=== PATIENT | female | born 1980 | race African-American/Black ===

== ENCOUNTER 2019-11-24 17:03 | Emergency (ER) | payer OTHER ==
[~2019-11-24] VITALS: Ht 167.6 cm; Wt 83.9 kg
[2019-11-24 17:08] VITALS: BP 161/83
--- NOTE | 2019-11-24 17:18 | NUR ---
ED Nurse Note: Patient from home and walked in due to heavy menstrual period x 1 week. Pt states that she missed her period last month. Pt cabrera sto use 6 pads per day but denies dizziness and any pain. AAO x4, ambulates with steady gait.
--- NOTE | 2019-11-24 17:34 | NUR ---
ED Nurse Note: Collected blood and urine then sent.
--- NOTE | 2019-11-24 17:43 | NUR ---
ED Nurse Note: Pt taken to US in stable condition.
--- NOTE | 2019-11-24 17:47 | Emergency Room Report ---
History of Present Illness General Chief Complaint: Female Urogenital Problems Source: Patient Present Illness HPI Disclaimer: Please note that this report is being documented using DRAGON technology. This can lead to erroneous entry secondary to incorrect interpretation by the dictating instrument. HPI: 46-year old female no reported past medical history presented for vaginal bleeding. For the past 2 weeks she has had vaginal bleeding with clots. She denies any pain. Last menstrual cycle was 2 months ago. She states she missed last month cycle. She denies any history of dysfunctional uterine bleeding. Denies any lightheadedness or dizziness. She is sexually active. She currently does not have any children. 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 Patient History Last Menstrual Period: 11/09 Now: No : 0 Para: 0 Reviewed Nursing Documentation: PMH: Agreed; PSxH: Agreed Nursing Documentation-PMH Past Medical History: No Stated History Review of Systems All Other Systems: negative except mentioned in HPI Physical Exam Vital Signs Date Time Temp Pulse Resp B/P (MAP) Pulse Ox O2 Delivery O2 Flow Rate FiO2 11/24/19 17:08 98.1 70 20 161/83 96 Room Air Sp02 EP Interpretation: reviewed, normal General Appearance: well appearing, no apparent distress Head: normocephalic, atraumatic Eyes: bilateral eye PERRL, bilateral eye EOMI ENT: hearing grossly normal, moist mucus membranes Neck: full range of motion, supple Respiratory: lungs clear, normal breath sounds, no rhonchi, no respiratory distress, no retraction, no wheezing Cardiovascular #1: normal peripheral pulses, regular rate, rhythm, no murmur Gastrointestinal: non tender, soft, non-distended, no guarding Neurologic: alert, oriented x3, no focal defects Skin: normal color, warm/dry Medical Decision Making Diagnostic Impression: Primary Impression: Uterine fibroid Additional Impressions: Uterine bleeding, dysfunctional Ovarian cyst ER Course MDM: Differential includes but not limited to differential functional uterine bleeding, spontaneous miscarriage, uterine fibroids, ectopic to name a few Clinical course-basic laboratory studies were sent ultrasound ordered urine test ordered. was negative. Hemoglobin stable. Ultrasound and CT ordered CT showed evidence of large uterine fibroid and a ovarian cyst. Ultrasound also demonstrated the same. She had no pain. She was not dizzy. 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 She was instructed to return for any worsening symptoms. Labs - Laboratory Tests Test 11/24/19 17:28 White Blood Count 9.2 K/UL (4.8-10.8) Red Blood Count 4.24 M/UL (4.20-5.40) Hemoglobin 12.5 G/DL (12.0-16.0) Hematocrit 38.5 % (37.0-47.0) Mean Corpuscular Volume 91 FL (80-99) Mean Corpuscular Hemoglobin 29.5 PG (27.0-31.0) Mean Corpuscular Hemoglobin Concent 32.5 G/DL (32.0-36.0) Red Cell Distribution Width 14.1 % (11.6-14.8) Platelet Count 324 K/UL (150-450) Mean Platelet Volume 8.1 FL (6.5-10.1) Neutrophils (%) (Auto) 66.8 % (45.0-75.0) Lymphocytes (%) (Auto) 22.1 % (20.0-45.0) Monocytes (%) (Auto) 6.7 % (1.0-10.0) Eosinophils (%) (Auto) 1.8 % (0.0-3.0) Basophils (%) (Auto) 2.6 % (0.0-2.0) H Urine Color Pale yellow Urine Appearance Cloudy Urine pH 6 (4.5-8.0) Urine Specific [place] 1.025 (1.005-1.035) Urine Protein 2+ (NEGATIVE) H Urine Glucose (UA) Negative (NEGATIVE) Urine Ketones Negative (NEGATIVE) Urine Blood 5+ (NEGATIVE) H Urine Nitrite Negative (NEGATIVE) Urine Bilirubin Negative (NEGATIVE) Urine Urobilinogen Normal MG/DL (0.0-1.0) Urine Leukocyte Esterase Negative (NEGATIVE) Urine RBC Tntc /HPF (0 - 2) H Urine WBC 0-2 /HPF (0 - 2) Urine Squamous Epithelial Cells Moderate /LPF (NONE/OCC) H Urine Bacteria Few /HPF (NONE) Urine HCG, Qualitative Negative (NEGATIVE) Sodium Level 140 MMOL/L (136-145) Potassium Level 4.0 MMOL/L (3.5-5.1) Chloride Level 105 MMOL/L (98-107) Carbon Dioxide Level 26 MMOL/L (21-32) Anion Gap 9 mmol/L (5-15) Blood Urea Nitrogen 14 mg/dL (7-18) Creatinine 1.2 MG/DL (0.55-1.30) Estimated Glomerular Filtration Rate > 60 mL/min (>60) Glucose Level 90 MG/DL (74-106) Calcium Level 8.9 MG/DL (8.5-10.1) Total Bilirubin 0.3 MG/DL (0.2-1.0) Aspartate Amino Transferase (AST) 22 U/L (15-37) Alanine Aminotransferase (ALT) 18 U/L (12-78) Alkaline Phosphatase 55 U/L (46-116) Total Protein 6.9 G/DL (6.4-8.2) Albumin 4.2 G/DL (3.4-5.0) Globulin 2.7 g/dL Albumin/Globulin Ratio 1.6 (1.0-2.7) On reevaluation: Patient remained in no acute distress Plan-start home, follow-up PMD, given return precautions. CT/MRI/US Diagnostic Results CT/MRI/US Diagnostic Results #1: Imaging Test Ordered: CT abdomen and pelvis Impression IMPRESSION: 1. Study substantially limited due to lack of IV contrast. 2. Left adnexal 5.2 cm probable ovarian cyst which may be hemorrhagic, not well evaluated on this study. 3. Recommend pelvic ultrasound to further characterize left adnexal structure. 4. Enlarged fibroid uterus. 5. Otherwise no acute abnormality definitively identified to account for patient presentation. 6. If there is continued clinical concern, consider repeating study with IV contrast. CT/MRI/US Diagnostic Results #2: Imaging Test Ordered: Pelvic ultrasound Impression IMPRESSION: 1. Nonvisualized right ovary. 2. No acute abnormality definitively identified to account for patient presentation. 3. Recommend follow-up pelvic ultrasound in 8-12 weeks for left ovarian probably hemorrhagic cyst. 4. Fibroid and enlarged uterus. 5. Otherwise unremarkable study. Last Vital Signs Date Time Temp Pulse Resp B/P (MAP) Pulse Ox O2 Delivery O2 Flow Rate FiO2 11/24/19 17:08 98.1 70 20 161/83 (109) 96 Room Air Status: improved Disposition: HOME, SELF-CARE Mcrae,John.D. Nov 24, 2019 17:47
[2019-11-24 18:03] LABS: BASOPHILS % (AUTO) 2.6 % (0.0-2.0); EOSINOPHILS % (AUTO) 1.8 % (0.0-3.0); HEMATOCRIT 38.5 % (37.0-47.0); HEMOGLOBIN 12.5 G/DL (12.0-16.0); LYMPHOCYTES % (AUTO) 22.1 % (20.0-45.0); MEAN CORPUSCULAR VOLUME 91 FL (80-99); MONOCYTES % (AUTO) 6.7 % (1.0-10.0); NEUTROPHILS % (AUTO) 66.8 % (45.0-75.0); PLATELET COUNT 324 K/UL (150-450); RED BLOOD COUNT 4.24 M/UL (4.20-5.40); RED CELL DISTRIBUTION WIDTH 14.1 % (11.6-14.8); WHITE BLOOD COUNT 9.2 K/UL (4.8-10.8)
[2019-11-24 18:05] LABS: APPEARANCE,URINE CLOUDY; BILIRUBIN, URINE NEGATIVE (NEGATIVE); COLOR,URINE PALE YELLOW; GLUCOSE, URINE (UA) NEGATIVE (NEGATIVE); KETONES,URINE NEGATIVE (NEGATIVE); LEUKOCYTE ESTERASE ,URINE NEGATIVE (NEGATIVE); NITRITE,URINE NEGATIVE (NEGATIVE); PH,URINE 6 (4.5-8.0); PROTEIN,URINE 2+ (NEGATIVE); UROBILINOGEN,URINE NORMAL MG/DL (0.0-1.0)
[2019-11-24 18:13] LABS: ANION GAP 9 mmol/L (5-15); BLOOD UREA NITROGEN 14 mg/dL (7-18); CALCIUM 8.9 MG/DL (8.5-10.1); CARBON DIOXIDE 26 MMOL/L (21-32); CHLORIDE 105 MMOL/L (98-107); CREATININE 1.2 MG/DL (0.55-1.30); SODIUM 140 MMOL/L (136-145)
[2019-11-24 18:18] LABS: ALANINE AMINOTRANSFERASE 18 U/L (12-78); ALBUMIN 4.2 G/DL (3.4-5.0); ALBUMIN/GLOBULIN RATIO 1.6 (1.0-2.7); ALKALINE PHOSPHATASE 55 U/L (46-116); ASPARTATE AMINO TRANSFERASE 22 U/L (15-37); BILIRUBIN,TOTAL 0.3 MG/DL (0.2-1.0)
--- NOTE | 2019-11-24 19:12 | NUR ---
HAND-OFF: Report given to Khushi COLE.
--- NOTE | 2019-11-24 19:15 | NUR ---
ED Nurse Note: Report received from DOUGLAS Johns. Pt is having US done at this time.
--- NOTE | 2019-11-24 19:37 | Diagnostic Imaging Report ---
EXAM: CT Abdomen and Pelvis Without Intravenous Contrast CLINICAL HISTORY: PAIN TECHNIQUE: Axial computed tomography images of the abdomen and pelvis without intravenous contrast. CTDI is 9.9 mGy and DLP is 525.9 mGy-cm. One or more of the following dose reduction techniques were used: automated exposure control, adjustment of the mA and/or kV according to patient size, use of iterative reconstruction technique. Coronal and sagittal reformatted images were created and reviewed. COMPARISON: No relevant prior studies available. FINDINGS: Limitations: Study substantially limited due to lack of IV contrast. Lung bases: Unremarkable. No mass. No consolidation. ABDOMEN: Liver: Unremarkable. Gallbladder and bile ducts: Unremarkable. No calcified stones. No ductal dilation. Pancreas: Unremarkable. No ductal dilation. Spleen: Unremarkable. No splenomegaly. Adrenals: Unremarkable. No mass. Kidneys and ureters: Unremarkable. No obstructing stones. No hydronephrosis. Stomach and bowel: Unremarkable. No obstruction. No mucosal thickening. PELVIS: Appendix: No findings to suggest acute appendicitis. Bladder: Unremarkable. No stones. Reproductive: Left adnexal 5.2 cm probable ovarian cyst which may be hemorrhagic, not well evaluated on this study. Enlarged fibroid uterus. ABDOMEN and PELVIS: Intraperitoneal space: Unremarkable. No free air. No significant fluid collection. Bones/joints: No acute fracture. No dislocation. Soft tissues: Unremarkable. Vasculature: Unremarkable. No abdominal aortic aneurysm. Lymph nodes: Unremarkable. No enlarged lymph nodes. IMPRESSION: 1. Study substantially limited due to lack of IV contrast. 2. Left adnexal 5.2 cm probable ovarian cyst which may be hemorrhagic, not well evaluated on this study. 3. Recommend pelvic ultrasound to further characterize left adnexal structure. 4. Enlarged fibroid uterus. 5. Otherwise no acute abnormality definitively identified to account for patient presentation. 6. If there is continued clinical concern, consider repeating study with IV contrast.
[2019-11-24 20:30] VITALS: BP 145/80
--- NOTE | 2019-11-24 20:30 | NUR ---
ER DISCHARGE NOTE: Patient is cleared to be discharged per ERMD, pt is aox4, on room air, with stable vital signs. pt was given dc and prescription instructions, pt was able to verbalize understanding, pt id band and iv site removed without complications. pt is able to ambulate with steady gait. pt took all belongings.
--- NOTE | 2019-11-24 20:48 | Diagnostic Imaging Report ---
EXAM: US Pelvis Transabdominal, Complete CLINICAL HISTORY: ABD PAIN TECHNIQUE: Real-time complete transabdominal pelvic ultrasound with image documentation. COMPARISON: Same-day CT abdomen and pelvis FINDINGS: Uterus/cervix: Uterine enlargement 14 x 8 x 6 cm with numerous fibroids. Endometrium 0.9 cm Right ovary: Nonvisualized right ovary. Left ovary: Left ovarian likely hemorrhagic cysts, left ovary measures 6.5 x 5.5 x 5 cm. Normal blood flow. Free fluid: No free fluid. Bladder: Unremarkable as visualized. Wall is normal thickness for degree of distention. IMPRESSION: 1. Nonvisualized right ovary. 2. No acute abnormality definitively identified to account for patient presentation. 3. Recommend follow-up pelvic ultrasound in 8-12 weeks for left ovarian probably hemorrhagic cyst. 4. Fibroid and enlarged uterus. 5. Otherwise unremarkable study.
== END 2019-11-24 20:30 | disposition home or self-care (01) ==
LOC: EMR 17:30
DX: D25.9 Leiomyoma of uterus, unspecified (principal); N83.202 Unspecified ovarian cyst, left side; N93.9 Abnormal uterine and vaginal bleeding, unspecified
CPT/HCPCS: 36415; 74176; 76830; 76856; 80053; 81003; 81025; 85025; 86850; 86900; 86901; Z7502; 99284